=== PATIENT | female | born 1965 | race Caucasian/White ===

== ENCOUNTER → 2021-02-06 07:14 | Outpatient (CLI) | payer BC, SELFPAY ==
--- NOTE | 2021-02-06 07:25 | BI_ITS ---
MAMMOGRAPHY - BILATERAL SCREENING 3-D TOMOSYNTHESIS REASON FOR EXAM: Female, 55 years old. Annual screening mammogram. PERTINENT HISTORY: Grandmother at age 70. Paternal aunt at age 70. History of left needle and excisional biopsies in 2008. TECHNIQUE: 2-D mammograms and 3-D Tomosynthesis of the breast (s) were performed. CAD was performed. COMPARISON: None. FINDINGS: The breast composition is composed of scattered fibroglandular density. Clips in the upper outer quadrant of the left breast and left axilla. Scattered benign calcifications are seen. No dense spiculated masses or suspicious microcalcifications are identified. No architectural distortion is identified. There is no skin thickening or retraction. BI/SCRN MAMM (CAD)W/BEN BILAT IMPRESSION: No mammographic signs of malignancy. Routine yearly mammograms recommended. ASSESSMENT CATEGORY: BIRADS Category 2: Benign. A letter regarding these results will be sent to the patient by the facility within 30 days. FOLLOW UP RECOMMENDATION: Yearly follow up mammogram recommended. (A) Approximately 10% of breast cancers are not detected by mammography. A normal mammogram should not delay biopsy of a clinically suspicious abnormality. Electronically Signed: Hasmukh Gaines MD at 11:59 EDT , Service support ,
== END ==
PROVIDERS: PCP Family Medicine; Referring Provider Obstetrics & Gynecology Gynecology; Visit Provider Obstetrics & Gynecology Gynecology
DX: Z12.31 Encounter for screening mammogram for malignant neoplasm of breast (principal)
CPT/HCPCS: 77063; 77067

== ENCOUNTER → 2022-01-30 | Outpatient (CLI) | payer BC, SELFPAY ==
[2022-01-30 07:39] LABS: ALB/GLOB Ratio 1.1 RATIO (0.9-2.4); AST(SGOT) 17 U/L (15-37); Alanine Aminotransfer ALT/SGPT 24 U/L (13-56); Albumin, Serum 3.7 g/dL (3.2-5.0); Alkaline Phosphatase 52 U/L (45-117); Anion Gap 3 (5-15); BUN 12 mg/dL (7-18); BUN/Creat Ratio 16.9 RATIO (10-20); Calcium,Total 8.7 mg/dL (8.5-10.1); Chloride 107 mmol/L (98-107); Cholesterol 218 mg/dL (200); Creatinine, Serum 0.71 mg/dL (0.55-1.02); EST Glomerular Filtration Rate 90 mL/min (>60); Est Glom Filt Rate - Afr Amer 109 mL/min (>60); Globulin 3.5 g/dL (2.2-4.2); Glucose 95 mg/dL (74-106); High Density Lipoprotein 51 mg/dL; Potassium 3.9 mmol/L (3.5-5.1); Protein, Total 7.2 g/dL (6.4-8.2); Sodium Level 139 mmol/L (136-145); Triglycerides 85 mg/dL; Very Low Density Lipoprotein 17 mg/dL (5-40)
[2022-01-30 07:49] LABS: Vitamin D,25 Hydroxy 42.8 ng/mL
== END | disposition home or self-care (01) ==
LOC: LAB 06:58
PROVIDERS: PCP Nurse Practitioner Family; Referring Provider Nurse Practitioner Family; Visit Provider Nurse Practitioner Family
DX: Z00.00 Encounter for general adult medical examination without abnormal findings (principal); Z12.31 Encounter for screening mammogram for malignant neoplasm of breast; E55.9 Vitamin D deficiency, unspecified; Z13.1 Encounter for screening for diabetes mellitus; Z90.710 Acquired absence of both cervix and uterus
CPT/HCPCS: 36415; 80053; 80061; 82306

== ENCOUNTER → 2022-06-11 | Outpatient (CLI) | payer BC, SELFPAY ==
--- NOTE | 2022-06-11 13:52 | BI_ITS ---
MAMMOGRAPHY - BILATERAL SCREENING REASON FOR EXAM: Female, 57 years old. Routine annual screening examination. PERTINENT HISTORY: Grandmother with breast cancer. Aunt with breast cancer. Prior left excisional breast biopsy. TECHNIQUE: Digital bilateral breast ben (3D mammographic acquisition) in the CC and MLO projections. 2-D mediolateral oblique (MLO) and craniocaudad (CC) views of both breasts were obtained. CAD: Full Field Digital Mammography with Computer Added Detection was performed. COMPARISON: Comparison is made with prior study dated 02/06/2021. FINDINGS: Breast Composition: There are scattered areas of fibroglandular density. There are no dominant masses or suspicious calcifications. The patient is status post excisional breast biopsy in the upper lateral aspect of the left breast with resultant postoperative scarring. Surgical clips are once again seen in the left axilla. No other significant abnormalities are identified. There has been no significant change since the prior study. BI/SCRN MAMM (CAD)W/BEN BILAT IMPRESSION: Stable bilateral screening mammogram. Yearly follow-up mammogram recommended. (A) ASSESSMENT CATEGORY: BIRADS Category 2: Benign. A letter regarding these results will be sent to the patient by the facility within 30 days. Approximately 10% of breast cancers are not detected by mammography. A normal mammogram should not delay biopsy of a clinically suspicious abnormality. [id number] Electronically Signed: Alfredo Mayer MD at 15:06 EDT ,
== END | disposition home or self-care (01) ==
PROVIDERS: PCP Nurse Practitioner Family; Referring Provider Nurse Practitioner Family; Visit Provider Nurse Practitioner Family
DX: Z12.31 Encounter for screening mammogram for malignant neoplasm of breast (principal)
CPT/HCPCS: 77063; 77067

== ENCOUNTER → 2022-09-04 | Outpatient (CLI) | payer BC, SELFPAY ==
[2022-09-04 12:05] LABS: Hematocrit 39.3 % (37-47); Hemoglobin 13.1 g/dL (12.0-15.0); Mean Corp Hgb Conc 33.3 g/dL (32-36); Mean Corpuscular Hgb 31.3 pg (27.0-32.0); Mean Platelet Vol. 9.8 fl (6.2-12.0); Platelet Count 254 K/mm3 (150-450); RBC Distribution Width SD 41.4 fl (35.1-43.9); Red Blood Count 4.18 M/mm3 (4.2-5.4); White Blood Count 4.5 K/mm3 (4.4-11.0)
[2022-09-04 12:16] LABS: ALB/GLOB Ratio 1.1 RATIO (0.9-2.4); AST(SGOT) 26 U/L (15-37); Alanine Aminotransfer ALT/SGPT 34 U/L (13-56); Alkaline Phosphatase 56 U/L (45-117); Amylase 50 U/L (25-115); Anion Gap 6 (5-15); BUN 9 mg/dL (7-18); BUN/Creat Ratio 11.5 RATIO (10-20); Chloride 105 mmol/L (98-107); Creatinine, Serum 0.78 mg/dL (0.55-1.02); EST Glomerular Filtration Rate 80 mL/min (>60); Est Glom Filt Rate - Afr Amer 97 mL/min (>60); Globulin 3.6 g/dL (2.2-4.2); Glucose 123 mg/dL (74-106); Lipase 73 U/L (73-393); Potassium 3.9 mmol/L (3.5-5.1); Protein, Total 7.6 g/dL (6.4-8.2); Sodium Level 139 mmol/L (136-145)
== END | disposition home or self-care (01) ==
PROVIDERS: PCP Nurse Practitioner Family; Referring Provider Nurse Practitioner Family; Visit Provider Nurse Practitioner Family
DX: R10.9 Unspecified abdominal pain (principal); R19.7 Diarrhea, unspecified; R11.2 Nausea with vomiting, unspecified
CPT/HCPCS: 36415; 80053; 82150; 83690; 85027

== ENCOUNTER → 2022-11-26 | Outpatient (CLI) | payer BC, SELFPAY ==
--- NOTE | 2022-11-26 08:38 | STRESSREP ---
Stress Test Report Date: 11/26/2022 Procedure: Exercise tolerance test/imaging study Indications: Abnormal ECG Consent: Per the patient Procedure: The patient exercised on a Usama protocol for 9 minutes achieving a peak heart rate of 166 bpm (102% predicted maximal heart rate) with a peak blood pressure 174/68 mmHg and a peak MET capacity of 10.1 METs. The baseline ECG demonstrated normal sinus rhythm. Nonspecific ST changes in inferior leads. The peak exercise ECG demonstrated exaggeration of baseline changes. Nondiagnostic secondary to baseline abnormalities. There were no cardiac dysrhythmias pretest, during exercise, or recovery. The functional capacity was considered good. There was no complaint of chest discomfort during exercise or recovery. The examination was discontinued secondary to target heart rate being achieved. The patient was injected with 11.8 mCi of technetium 99m Cardiolite and subsequently rest SPECT Cardiolite nuclear imaging was obtained in the horizontal long, vertical long, and short axis views. Post-exercise, the patient was injected with 33.6 mCi of technetium 99m Cardiolite and subsequently stress SPECT Cardiolite nuclear imaging was obtained in the horizontal long, vertical long, and short axis views. A gated Cardiolite study at peak stress was obtained. Rest and stress SPECT Cardiolite nuclear imaging status post realignment, normalization, and attenuation correction, demonstrates the appearance of relative uniform tracer uptake and myocardial perfusion appearing within normal limits. There is end systolic thickening and brightening. The gated Cardiolite study demonstrates myocardial thickening and inward wall motion. The reported LVEF is 74%. Impression: 1. Technically adequate (percent predicted maximal heart rate greater than 85%) exercise tolerance test 2. Peak exercise ECG with nondiagnostic changes secondary to baseline abnormality 3. There were no cardiac dysrhythmias pretest, during exercise, or recovery 4. Rest and stress SPECT Cardiolite nuclear imaging demonstrate no fixed or reversible perfusion defect. 5. The gated Cardiolite study reports an LVEF of 74%. This note was generated with [employer] software. It may contain incorrect words, spelling, and punctuation that were not noted in checking the note before signing.
== END | disposition home or self-care (01) ==
PROVIDERS: PCP Nurse Practitioner Family; Referring Provider Physician Assistant Medical; Visit Provider Physician Assistant Medical
DX: Z01.810 Encounter for preprocedural cardiovascular examination (principal); R94.31 Abnormal electrocardiogram [ECG] [EKG]
CPT/HCPCS: 78452; 93017; A9500; A4216

== ENCOUNTER 2022-12-15 05:59 | Day surgery (SDC) | payer BC, SELFPAY ==
[2022-11-18 10:45] VITALS: BP 150/86; PULSE 112; RESP 17; TEMP 36.8; O2SAT 97; BMI 24.2
[2022-11-18] MEDS: Lactated Ringers 1,000 ML 15 ML IV (10:53)
--- NOTE | 2022-11-18 11:15 | HP.PCM_ITS ---
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 Jarad Molina MD) Environmental allergies H/O pyloric stenosis RUQ pain Surgical History?(Updated 11/04/22 @ 15:10 by Ilsa Vale) S/P endometrial ablation S/P hysterectomy S/P surgical removal of pilonidal cyst S/P tubal ligation Status post left breast lumpectomy Social History?(Updated 11/04/22 @ 15:11 by Ilsa Vale) Smoking Status:? Never smoker alcohol intake:? current HPI HPI HPI: Patient is a 57-year-old female here with intermittent nausea and vomiting as well as right upper quadrant pain especially after eating fatty foods.? She denies fevers or chills. ROS General General: No weight change, appetite, fatigue, colon cancer, breast cancer or weakness HEENT HEENT: No difficulty swallowing, eye injury, eye surgery, swollen glands or hoarseness Endo Endocrine: No thyroid disease, diabetes mellitus, thyroid cancer, Hair loss, heat intolerance or cold intolerance Skin Skin: No rash or changing moles Breast Breast: No left breast lump, right breast lump, nipple discharge, breast pain, abnormal mammogram, abnormal US or breast enlargement Musc Musculoskeletal: Yes arthritis; No back problems, rheumatoid arthritis, gout or joint pain Cardio Cardiovascular: No murmur, pacemaker, heart disease, atrial fibrillation, high blood pressure, heart attack, heart stent, palpitations, shortness of breat with exertion or chest pain Psych Psychiatric: No depression, anxiety or hearing voices Resp Respiratory: No shortness of breath, No sleep apnea, No cough, No COPD, No asthma, No emphysema and No wheezing Gastro Gastrointestinal: Yes abdominal pain, Yes nausea or vomiting, No diarrhea, No constipation, No blood in stool, No acid reflux, No hemorrhoids, No ulcers, Yes gallbladder problem and No black,tarry stools Marty Hematologic: No blood thinners, No blood disorders, No bleeding, No anemia and No blood clots Neuro Neurologic: No system reviewed and no additional complaints, except as documented, No as per HPI, No abnormal gait, No abnormal hearing, No abnormal movements, No abnormal speech, No behavioral changes, No burning sensations, No confusion, No convulsions, No disequilibrium, No dizziness, No localized weakness, No frequent falls, No headache(s), No lack of coordination, No loss of vision, No memory loss, No numbness, No other visual disturbances, No radicular pain, No restless legs, No sensory deficit, No syncope, No tingling, No tremor(s), No weakness and No other Exam Const General: cooperative Orientation: alert and oriented x3 HENMT Head: normal to inspection Neck Neck: normal visual inspection and full ROM Chest Chest palpation & inspection: normal inspection of the chest Resp Effort & Inspection: normal respiratory effort Auscultation: clear to auscultation bilaterally Cardio Rate: regular rate Rhythm: regular rhythm GI Inspection: non-distended Palpation: soft and nontender Skin General: no rashes or lesions noted Neuro General: patient alert and patient oriented x3 Extrem General: full ROM Psych Appearance: grossly normal Mental Status: mental status grossly normal Assessment and Plan Assessment and Plan (1) RUQ pain: ?Status:?Acute (2) Cholelithiasis: ?Status:?Acute ?Qualifiers: ?Cholelithiasis location:?gallbladder??Cholecystitis presence:?without cholecystitis??Biliary obstruction:?without biliary obstruction? Qualified Code(s):?K80.20 - Calculus of gallbladder without cholecystitis without obstruction Plan Patient does have biliary colic symptoms and ultrasound revealed cholelithiasis.? I recommended laparoscopic cholecystectomy.? I discussed the procedure in detail with the patient.? I discussed the risks, benefits, and alternatives of the procedure.? I discussed the risks including but not limited to bleeding, infection, injury to surrounding organs such as the liver, bile duct, bowels.? I did discuss the possibility of having to convert to an open procedure as well as the possibility that if any injuries occurred this may necessitate further surgery at a tertiary care center. Jarad Molina MD Pager: [facility] [address] [place] [address], [address] [place] [address] Office: I have examined the patient and the H&P has been reviewed. There are no clinical changes since date of exam.
[2022-11-18 12:03] LABS: Troponin-I HS 5 pg/mL (3.0-54.0)
--- NOTE | 2022-11-18 12:28 | SUR.PREOP ---
Updated patient that Troponin is within normal limits. Per Dr. Molina, patient may d/c home and his office will call her regarding cardiology follow up
[2022-12-15] VITALS (10 sets, daily range): BP systolic 100–137; BP diastolic 53–88; PULSE 54–96; RESP 16; TEMP 36.1–36.7; O2SAT 95–100; BMI 23.7
[2022-12-15] MEDS: Lactated Ringers 1,000 ML 15 ML IV (06:45)
--- NOTE | 2022-12-15 07:10 | HP.PCM_ITS ---
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 Jarad Molina MD) Environmental allergies H/O pyloric stenosis RUQ pain Surgical History?(Updated 11/04/22 @ 15:10 by Ilsa Vale) S/P endometrial ablation S/P hysterectomy S/P surgical removal of pilonidal cyst S/P tubal ligation Status post left breast lumpectomy Social History?(Updated 11/04/22 @ 15:11 by Ilsa Vale) Smoking Status:? Never smoker alcohol intake:? current HPI HPI HPI: Patient is a 57-year-old female here with intermittent nausea and vomiting as well as right upper quadrant pain especially after eating fatty foods.? She denies fevers or chills. ROS General General: No weight change, appetite, fatigue, colon cancer, breast cancer or weakness HEENT HEENT: No difficulty swallowing, eye injury, eye surgery, swollen glands or hoarseness Endo Endocrine: No thyroid disease, diabetes mellitus, thyroid cancer, Hair loss, heat intolerance or cold intolerance Skin Skin: No rash or changing moles Breast Breast: No left breast lump, right breast lump, nipple discharge, breast pain, abnormal mammogram, abnormal US or breast enlargement Musc Musculoskeletal: Yes arthritis; No back problems, rheumatoid arthritis, gout or joint pain Cardio Cardiovascular: No murmur, pacemaker, heart disease, atrial fibrillation, high blood pressure, heart attack, heart stent, palpitations, shortness of breat with exertion or chest pain Psych Psychiatric: No depression, anxiety or hearing voices Resp Respiratory: No shortness of breath, No sleep apnea, No cough, No COPD, No asthma, No emphysema and No wheezing Gastro Gastrointestinal: Yes abdominal pain, Yes nausea or vomiting, No diarrhea, No constipation, No blood in stool, No acid reflux, No hemorrhoids, No ulcers, Yes gallbladder problem and No black,tarry stools Marty Hematologic: No blood thinners, No blood disorders, No bleeding, No anemia and No blood clots Neuro Neurologic: No system reviewed and no additional complaints, except as documented, No as per HPI, No abnormal gait, No abnormal hearing, No abnormal movements, No abnormal speech, No behavioral changes, No burning sensations, No confusion, No convulsions, No disequilibrium, No dizziness, No localized weakness, No frequent falls, No headache(s), No lack of coordination, No loss of vision, No memory loss, No numbness, No other visual disturbances, No radicular pain, No restless legs, No sensory deficit, No syncope, No tingling, No tremor(s), No weakness and No other Exam Const General: cooperative Orientation: alert and oriented x3 HENMT Head: normal to inspection Neck Neck: normal visual inspection and full ROM Chest Chest palpation & inspection: normal inspection of the chest Resp Effort & Inspection: normal respiratory effort Auscultation: clear to auscultation bilaterally Cardio Rate: regular rate Rhythm: regular rhythm GI Inspection: non-distended Palpation: soft and nontender Skin General: no rashes or lesions noted Neuro General: patient alert and patient oriented x3 Extrem General: full ROM Psych Appearance: grossly normal Mental Status: mental status grossly normal Assessment and Plan Assessment and Plan (1) RUQ pain: ?Status:?Acute (2) Cholelithiasis: ?Status:?Acute ?Qualifiers: ?Cholelithiasis location:?gallbladder??Cholecystitis presence:?without cholecystitis??Biliary obstruction:?without biliary obstruction? Qualified Code(s):?K80.20 - Calculus of gallbladder without cholecystitis without obstruction Plan Patient does have biliary colic symptoms and ultrasound revealed cholelithiasis.? I recommended laparoscopic cholecystectomy.? I discussed the procedure in detail with the patient.? I discussed the risks, benefits, and alternatives of the procedure.? I discussed the risks including but not limited to bleeding, infection, injury to surrounding organs such as the liver, bile duct, bowels.? I did discuss the possibility of having to convert to an open procedure as well as the possibility that if any injuries occurred this may necessitate further surgery at a tertiary care center. Jarad Molina MD Pager: [facility] [address] [place] [address], [address] [place] [phone] Office: Patient had abnormal EKG during her last surgery attempt and surgery was canceled and she went for heart work-up. She has stress test which was normal. She is back today for laparoscopic cholecystectomy. There are no changes since the last exam. Jarad Molina MD Pager: [facility] [address] [place] [address], [address] [place] [phone] Office:
[2022-12-15] MEDS: Cefotetan 2 GM in 0.9% NS 100 ML IV (07:29)
--- NOTE | 2022-12-15 07:30 | GALL_PTH ---
PATIENT: TREVIN BECK JANUARY [place] [facility] [id number] AGE/SX: 57/F ROOM: RE12/15/[address]: Dr. Jarad Molina MD : 1965 BED: DIS: 12/15/2022 SPEC #: [id number] RECD: 12/15/22 10:00 STATUS: ASHER RICHARD #: [id number] SAMEER: 12/15/22 07:[address]: Jarad Molina DEPT: SURGICAL PATHOLOGY RECD BY: Emerita Britt ENTERED: 12/15/22 10:32 SP TYPE: LOIDA BISWAS DR: Danial Pinto, SNELLER HAND-C Tissues: Gallbladder, NOS Procedures: Surgery Specimen Level III HEADER OPERATION: Laparoscopic cholecystectomy with IOC PRE-OP DIAGNOSIS: Right upper quadrant pain, cholelithiasis TISSUE SUBMITTED: Gallbladder MICROSCOPIC DIAGNOSIS Gallbladder, cholecystectomy: Chronic cholecystitis and cholelithiasis. SJ:eric 12/16/2022 MICROSCOPIC DESCRIPTION Slides are reviewed. GROSS DESCRIPTION Received is one container labeled with the patient's name and designated gallbladder. The specimen consists of a gallbladder measuring 8.0 x 3.5 x 2.5 cm. The external surface is smooth and glistening. Focally, it is granular, hemorrhagic and contains cautery artifact. The lumen of the gallbladder contains greenish mucoid bile and multiple chalky yellow calculi ranging in size from <0.1 to 1.2 cm in greatest dimension. The mucosa is bile-stained and without any mass lesions. The gallbladder wall averages 0.1 cm in thickness and is free of mass lesions. Production Operations Inspector sections of the gallbladder and the cystic duct at margin of resection are submitted in one cassette. / AM:eric 12/15/2022 TC:3 CPT: 36513
--- NOTE | 2022-12-15 07:45 | RAD_ITS ---
STUDY: INTRAOPERATIVE CHOLANGIOGRAM. REASON FOR EXAM: Female, 57 years old. Laparoscopic cholecystectomy. FLUOROSCOPY TIME (if supplied): ( 13.3 seconds ) minutes/seconds. 3.06 mGy TECHNIQUE: An intraoperative cholangiogram was performed by the surgeon. Imaging was submitted. COMPARISON: None. FINDINGS: The intra and extra hepatic biliary ducts are unremarkable. No intraluminal filling defect is seen. There is free flow of contrast into the duodenum. RAD/Cholangiogram/ O R,Initial IMPRESSION: Unremarkable intraoperative cholangiogram. Electronically Signed: Alfredo Mayer MD at 15:31 EDT ,
[2022-12-15] MEDS: Bupivacaine 0.25% 30 ML Vial (08:13)
--- NOTE | 2022-12-15 08:50 | OP.PCM_ITS ---
Report of Operation Date of Procedure: 12/15/22 Pre-Operative Diagnosis: Biliary colic, cholelithiasis Post-Operative Diagnosis: Same Surgery/Procedure Performed:: Laparoscopic cholecystectomy with cholangiogram Specimen's removed: Gallbladder Description of Procedure: After obtaining informed consent patient was brought back to the operating room. General anesthesia was induced. The abdomen was prepped and draped in usual sterile fashion. An incision was made in the right upper quadrant and using Visiport technique the abdomen was entered. Under direct visualization an incision in the midline was made and a port was placed superior to the scar tissue. Next under direct visualization two 5-mm ports were placed one subxiphoid and 2 subcostal. Next the gallbladder was elevated and retracted toward the right shoulder. The peritoneum was stripped from the gallbladder. The infundibulum was located and retracted laterally. Next the triangle of Calot was dissected and the cystic duct and cystic artery were identified. Cholangiograms were performed. The Aviles clamp was used to clamp across the infundibulum and the catheter needle was inserted into the gallbladder. Under fluoroscopy contrast was instilled into the gallbladder and the common duct, cystic duct as well as proximal hepatic ducts were identified. There was good filling of the duodenum. There were no filling defects noted in the common bile duct. The clamp was removed as well as the needle and the infundibulum was grasped once more. Three hemolock clips were placed across the cystic duct. The cystic duct was then divided leaving 2 clips on the stump. The cystic artery was clipped and divided in the same fashion. The hook cautery was then used to take the gallbladder off of the gallbladder bed. Hemostasis was obtained. Gallbladder fossa was irrigated and no active bleeding or bile leakage was noted. Next the camera was introduced in the subxiphoid port. An Endopouch bag was placed through the umbilical port and the gallbladder was placed into it. The gallbladder was then removed through the umbilical incision. The camera was then reinserted through the umbilical port. The gallbladder fossa was inspected once more and noted to be hemostatic with no leaking bile. The abdomen was suctioned dry. The 5 mm ports were removed under direct visualization. The umbilical port was then removed and the air was removed from the abdomen. Next using an 0 Vicryl suture the umbilical fascia was closed in a [id number]-icybt fashion. The umbilical port site was irrigated local anesthetic was administered to all the incisions. All the incisions were closed with interrupted subcuticular 4-0 Monocryl sutures followed by Steri- Strips and dressings. The patient was awoken and taken to PACU in stable condition. Admit VTE Documentation VTE Mechan Device Prophylaxis: SCD's
--- NOTE | 2022-12-15 08:53 | DCINST_ITS ---
Discharge Instructions Procedure Gallbladder Diet Discharge Diet: Light diet - advance as tolerated Activity Discharge Activity: May Not Drive (for 2-3 days or while taking narcotic pain medications.) and - (Do not drive, work heavy equipment or sign legal documents for 24 hours.) May shower in (days): 1 Lifting Restrictions: 20 lbs for 2 weeks Additional Activity Instructions:: Pain medication may cause nausea. You should typically eat light foods as you take your pain medications. Pain medication may also cause constipation. If this is a problem for you, please discuss with your doctor. Dressing / Incision Call your doctor if your incision/area has: Continuous Slow Oozing, Sudden Increased Bleeding, Increased Pain/ Swelling, Increased Redness and Foul Smelling Discharge Call your doctor if you observe: Fever of 101 or Higher Suture Line Care: Avoid Pulling/Pushing and Avoid Pinching/Bending Remove Dressing in: 2 days Additional Dressing/Incision Instructions:: Leave operative bandaids on for 2 days. When you remove dressing, leave Steri-Strips on until your follow-up appointment, or until the Steri-Strips fall off on their own. Follow Up Care Please Follow Up With: Jarad Molina MD When: Please call to schedule 2 week follow up appointment. [phone] Test Results: Test results from this visit will be discussed in further detail at your follow- up appointment, if applicable. Discharge Plan Admission Attending Provider: Jarad Molina Primary Care Provider: Danial Pinto NP Discharge Orders/Prescriptions Prescriptions: New oxycodone 5 mg tablet 5 - 10 mg PO Q6H PRN (Reason: pain) 5 Days Qty: 20 0RF No Action zinc gluconate 50 mg tablet 50 mg PO DAILY Zyrtec 10 mg capsule 10 mg PO DAILY estradiol [Estradiol Transdermal Patch] 0.05 mg/24 hr Patch Weekly 1 patch TRANSDERMAL QWEEK Referrals / Follow Up: Danial Pinto NP, PRODUCT MARKETING INTERN-C [Primary Care Provider] - Disposition Disposition (needs filled in before D/C Order can be placed): Home, Self Care
== END 2022-12-15 12:47 | disposition home or self-care (01) ==
LOC: SDC 06:01 → AC 06:01
PROVIDERS: Anesthesiology; PCP Nurse Practitioner Family; Referring Provider Surgery; Visit Provider Surgery
PROC: (CPT 47610; principal; 2022-12-15 07:10)
DX: K80.10 Calculus of gallbladder with chronic cholecystitis without obstruction (principal); Z91.09 Other allergy status, other than to drugs and biological substances; Z87.19 Personal history of other diseases of the digestive system; Z97.3 Presence of spectacles and contact lenses; Z97.2 Presence of dental prosthetic device (complete) (partial); Z90.710 Acquired absence of both cervix and uterus; Z98.51 Tubal ligation status
CPT/HCPCS: 47563; 00790; 74300; 76000; 84484; 88304; 93005; J7120; J2405

== ENCOUNTER → 2023-06-17 | Outpatient (CLI) | payer BC, SELFPAY ==
--- NOTE | 2023-06-17 07:34 | BI_ITS ---
MAMMOGRAPHY - BILATERAL SCREENING REASON FOR EXAM: Female, 58 years old. Routine annual screening examination. PERTINENT HISTORY: Grandmother with breast cancer. Aunt with breast cancer. Remote left excisional breast biopsy. TECHNIQUE: Digital bilateral breast ben (3D mammographic acquisition) in the CC and MLO projections. 2-D mediolateral oblique (MLO) and craniocaudad (CC) views of both breasts were obtained. CAD: Full Field Digital Mammography with Computer Added Detection was performed. COMPARISON: Comparison is made with prior study June 11, 2022 and February 06, 2021. FINDINGS: Breast Composition: There are scattered areas of fibroglandular density. There are no dominant masses or suspicious calcifications. The patient is status post excisional breast biopsy in the upper lateral aspect of the left breast. Postoperative scarring is seen as well as postoperative clip. Surgical clips are also seen in the left axilla. No other significant abnormalities are identified. There has been no significant change since the prior study. BI/SCRN MAMM (CAD)W/BEN BILAT IMPRESSION: Stable bilateral screening mammogram. Yearly follow-up mammogram recommended. (A) ASSESSMENT CATEGORY: BIRADS Category 2: Benign. A letter regarding these results will be sent to the patient by the facility within 30 days. Approximately 10% of breast cancers are not detected by mammography. A normal mammogram should not delay biopsy of a clinically suspicious abnormality. [id number] Electronically Signed: Alfredo Mayer MD at 8:56 EDT ,
== END | disposition home or self-care (01) ==
LOC: OPBI 07:32
PROVIDERS: PCP Nurse Practitioner Family; Referring Provider Nurse Practitioner Family; Visit Provider Nurse Practitioner Family
DX: Z12.31 Encounter for screening mammogram for malignant neoplasm of breast (principal); Z80.3 Family history of malignant neoplasm of breast
CPT/HCPCS: 77063; 77067

== ENCOUNTER 2024-03-02 08:04 | Day surgery (SDC) | payer BC, SELFPAY ==
[2024-03-02] VITALS (9 sets, daily range): BP systolic 99–152; BP diastolic 56–89; PULSE 66–111; RESP 16; TEMP 36.3–36.4; O2SAT 100; BMI 23.6
--- NOTE | 2024-03-02 08:14 | PRE.ANES_ITS ---
ASA Classification* ASA Classification ASA Classification: 2 Assessment & Plan Anesthesia* Anesthesia Assessment Anesthesia Assessment: Discussed sedation and/or anesthesia options, risks, benefits, and alternatives with patient/parents/legal guardian/POA. Questions invited. The patient/parents/legal guardian/POA seems to understand and agrees to proceed with anesthesia plan. Reviewed the physical assessment, medical history, allergy history and patient home medications list prior to surgery/procedure/anesthetic and documented any changes. Performed airway and anesthesia risk assessments. Anesthesia Type Anesthesia Type: MAC (see written pre anesthesia record for complete assessment) Anesthesia Focused Assessment* Airway Assessment Mouth opens: >3 cm Mallampati Score: II Focused Labs Anesthesia Preop lab: CBC WBC 4.5 K/mm3 (4.4-11.0) 09/04/22 10:38 RBC 4.18 M/mm3 (4.2-5.4) L 09/04/22 10:38 Hgb 13.1 g/dL (12.0-15.0) 09/04/22 10:38 Hct 39.3 % (37-47) 09/04/22 10:38 Plt Count 254 K/mm3 (150-450) 09/04/22 10:38 CHEMISTRY Potassium 3.9 mmol/L (3.5-5.1) 09/04/22 10:38 Sodium 139 mmol/L (136-145) 09/04/22 10:38 BUN 9 mg/dL (7-18) 09/04/22 10:38 Creatinine 0.78 mg/dL (0.55-1.02) 09/04/22 10:38 Glucose 123 mg/dL (74-106) H 09/04/22 10:38 TSH 2.15 uIU/mL (0.358-3.74) 07/23/16 07:38 COAG Pre-Assessment Diagnosis/Proposed Procedure Planned Operative Procedure(s): COLONOSCOPY-OA Anesthesia History 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 When Was Last Pacemaker Check QUESTION #4 FULL TEXT: You/Your Family Experience fever (hyperthermia) with Anesthesia Last Oral Intake Last Oral intake: Last Oral Intake NPO since Meds taken in AM with sips of water? Meds patient instructed to take am of surgery PONV PONV - medical billing manager: PONV - medical billing manager Female Yes 02/29/24 12:02 HX of Motion Sickness No 02/29/24 12:02 HX of N/V After Surgery No 02/29/24 12:02 Non-Smoker Yes 02/29/24 12:02 Duration of Surgery greater No 02/29/24 12:02 than 60 minutes Number of Risk Factors 2 02/29/24 12:02 PONV Score Moderate Risk 02/29/24 12:02 Height & Weight Height & Weight: Anesthesia: Height & Weight Height 5 ft 4 in 01/14/24 09:00 Respiratory Assessment Respiratory Assessment - medical billing manager: Respiratory Tract Infection Hx - medical billing manager Hx Respiratory Tract Infection No 02/29/24 12:02 STOP Sleep Apnea STOP Sleep Apnea - medical billing manager: STOP Sleep Apnea - medical billing manager Hx Hypertension No 02/29/24 12:02 Hx Sleep Apnea No 02/29/24 12:02 CPAP BIPAP Do you snore loudly (louder No 02/29/24 12:02 than talking or can be heard Do you often feel tired/ No 02/29/24 12:02 fatigued/ sleepy during daytime? Has anyone observed you stop No 02/29/24 12:02 breathing during sleep? STOP Results Negative 02/29/24 12:02 QUESTION #5 FULL TEXT : Do you snore loudly (louder than talking or can be heard through closed doors)? 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 Specify any problems Hx of Preganancy in last 3 No 02/29/24 12:02 Months Nurse Filling Out Transfusion VCHRISTIN 02/29/24 12:02 & Questions: Date: 02/29/24 02/29/24 12:02 Time: 12:03 02/29/24 12:02 Patient unable to answer at this time (ie. confused, unrespo /Reproduction History /Reproductive History - medical billing manager: /Reproductive Hx- medical billing manager Hx Now No 02/29/24 12:02 Gestational Age (in weeks): EDC: Hx Hx Para Hx Section SAB No 02/29/24 12:02 Active Medications Active Medications: Current Medications Generic Name Dose Route Start Last Admin Trade Name Freq PRN Reason Stop Dose Admin Lactated Ringer's 1,000 mls @ 15 mls/hr 03/02/24 08:15 IV .Q48H LENA PFSH Medical History Hypercholesteremia History of stress test Cardiology follow-up encounter Encounter for preoperative assessment for noncoronary cardiac surgery Abnormal electrocardiogram [ECG] [EKG] Wears glasses Wears partial dentures Arthritis Back pain Non-smoker Hypertension Cholelithiasis H/O pyloric stenosis Environmental allergies RUQ pain Home Medications ?Medication ?Instructions ?Recorded ?Last Taken ?Type estradiol 0.05 mg/24 hr weekly 1 patch transdermal QWEEK 11/11/22 Unknown History transdermal patch ezetimibe 10 mg tablet 10 mg PO DAILY 01/14/24 Unknown History turmeric 400 mg capsule 400 mg PO .QD 01/14/24 02/27/24 History cetirizine 10 mg tablet (24Hour 10 mg PO DAILY PRN allergy symptoms 02/29/24 Unknown History Allergy) Allergy/AdvReac Type Severity Reaction Status Date / Time No Known Allergies Allergy Verified 02/29/24 11:56 Family History Father CAD (coronary artery disease), Onset Age: 80 bypass surgery Hypertension Grandmother Cancer Diabetes Other Heart disease Surgical History History of laparoscopic cholecystectomy Status post left breast lumpectomy S/P tubal ligation S/P endometrial ablation S/P hysterectomy S/P surgical removal of pilonidal cyst Social History household members: spouse current occupational status: employed Smoking Status: Never smoker alcohol intake: current substance use type: does not use Review of Systems (Anesthesia) ROS Narrative System reviewed and no additional complaints, except as documented.
[2024-03-02] MEDS: Lactated Ringers 1,000 ML 15 ML IV (08:30)
--- NOTE | 2024-03-02 08:47 | PCM.HP.STD ---
[facility] - General General Date of Admission: 03/02/24 Date of Service: 03/02/24 Chief Complaint: Screening colonoscopy HPI Narrative TREVIN BECK, is a 59 F who presents today for screening colonoscopy. She is never had a colonoscopy in the past. She has no chest pain or shortness of breath. She has no nausea, vomiting or diarrhea. She takes medicines for cholesterol on a daily basis. She also takes estrogen. She is in very good health. [facility] Medical History Hypercholesteremia History of stress test Cardiology follow-up encounter Encounter for preoperative assessment for noncoronary cardiac surgery Abnormal electrocardiogram [ECG] [EKG] Wears glasses Wears partial dentures Arthritis Back pain Non-smoker Hypertension Cholelithiasis H/O pyloric stenosis Environmental allergies RUQ pain Home Medications ?Medication ?Instructions ?Recorded ?Last Taken ?Type estradiol 0.05 mg/24 hr weekly 1 patch transdermal QWEEK 11/11/22 Unknown History transdermal patch ezetimibe 10 mg tablet 10 mg PO DAILY 01/14/24 Unknown History turmeric 400 mg capsule 400 mg PO .QD 01/14/24 02/27/24 History cetirizine 10 mg tablet (24Hour 10 mg PO DAILY PRN allergy symptoms 02/29/24 Unknown History Allergy) Allergy/AdvReac Type Severity Reaction Status Date / Time No Known Allergies Allergy Verified 03/02/24 08:22 Family History Father CAD (coronary artery disease), Onset Age: 80 bypass surgery Hypertension Grandmother Cancer Diabetes Other Heart disease Surgical History History of laparoscopic cholecystectomy Status post left breast lumpectomy S/P tubal ligation S/P endometrial ablation S/P hysterectomy S/P surgical removal of pilonidal cyst Social History household members: spouse current occupational status: employed Smoking Status: Never smoker alcohol intake: current substance use type: does not use ROS Review of Systems ROS Unobtainable: other Constitutional Constitutional: Denies fatigue, fever(s), poor appetite, weight gain or weight loss ENT HEENT: Denies mouth lesions Cardiovascular Cardiovascular: Denies abdominal bloating, abdominal edema or abdominal pain Respiratory/Chest Respiratory/Chest: Denies change in mental status, change in phlegm color, chest congestion or chest tightness Gastrointestinal Gastrointestinal: Denies belching, bloating, change in bowel habits, change in stool character, chewing difficulty, coffee ground emesis, constipation, cramping, diarrhea, dyspepsia, dysphagia, early satiety, excessive flatus, fecal incontinence, heartburn, hematemesis, hematochezia, hemorrhoids, loose stools, melena, nausea, odynophagia, rectal bleeding, tenesmus, vomiting or weight changes Genitourinary Genitourinary: Denies abdominal discomfort, burning urination or itching Musculoskeletal Musculoskeletal: Reports as per HPI; Denies muscle weakness or myalgias Integumentary Integumentary: Denies jaundice Neurologic Neurologic: Denies lack of coordination or weakness Psychiatric Psychiatric: Denies confusion, depression, memory loss, mood swings, paranoia or suicidal ideation Endocrine Endocrinology: Denies systems reviewed and no addt'l complaints, except as documented Hematologic/Lymphatic Hematologic/Lymphatic: Denies anemia, easy bleeding, easy bruising or lymphadenopathy Allergic/Immunologic Allergic/Immunologic: Denies systems reviewed and no addt'l complaints, except as documented Vital Signs Vital Signs Vital Signs: 03/02/24 08:23 03/02/24 08:23 Temperature 97.5 F L Temperature Source Temporal Pulse Rate 111 H Respiratory Rate 16 Respiratory Pattern Normal Blood Pressure 152/89 H Blood Pressure Mean 110 Blood Pressure Source Monitor Blood Pressure Position Semi-Fowlers Blood Pressure Location Right Arm Pulse Ox 100 Oxygen Delivery Method Room Air Weight Weight: 138 lb Body Mass Index (BMI) 23.6 Physical Exam Const alert General Appearance: cooperative Orientation / Consciousness: oriented to person HEENT hearing grossly normal bilaterally Head and Scalp: normal to inspection Face and Sinus: face symmetric Nose: external nose normal Mouth: oral and palatal mucosa normal Eyes conjunctivae normal General Eye: normal appearance of both eyes Neck full ROM General: normal visual inspection Lymph Lymphatic: no lymphadenopathy noted Chest inspection of chest normal and palpation of chest normal Chest: symmetrical chest wall rise Resp normal respiratory effort Effort and Inspection: able to speak in complete sentences Cardio regular rate GI non-distended Percussion: normal to percussion Rectal Exam: deferred Neuro Speech: speech normal Gait (Neuro): normal gait Assessment & Plan Assessment/Plan (1) Encounter for screening for malignant neoplasm of colon: PLAN: She was explained alternatives, risk, benefits including not withstanding bleeding, infection, sepsis, perforation, need for emergent urgent . She will have an ASA of 3.
--- NOTE | 2024-03-02 09:20 | OP.COLON_ITS ---
Patient Name: Cady Shah Procedure Date: 03/02/2024 8:50 AM Date of : 1965 Age: 59 Procedure: Colonoscopy Indications: Screening for colorectal malignant neoplasm Providers: Yovani Childress DO Referring MD: Danial Pinto Medicines: Monitored Anesthesia Care Patient Profile: This is a 59 year old female. Refer to note in patient chart for documentation of history and physical. Last Colonoscopy: none. The patient's first colonoscopy is today. Complications: No immediate complications. Procedure: Pre-Anesthesia Assessment: - Prior to the procedure, a History and Physical was performed, and patient medications and allergies were reviewed. The risks and benefits of the procedure and the sedation options and risks were discussed with the patient. All questions were answered and informed consent was obtained. Patient identification and proposed procedure were verified by the physician. Mental Status Examination: alert and oriented. Prophylactic Antibiotics: The patient does not require prophylactic antibiotics. Prior Anticoagulants: The patient has taken no anticoagulant or antiplatelet agents. ASA Grade Assessment: II - A patient with mild systemic disease. After reviewing the risks and benefits, the patient was deemed in satisfactory condition to undergo the procedure. The anesthesia plan was to use monitored anesthesia care (MAC). Immediately prior to administration of medications, the patient was re-assessed for adequacy to receive sedatives. The heart rate, respiratory rate, oxygen saturations, blood pressure, adequacy of pulmonary ventilation, and response to care were monitored throughout the procedure. The physical status of the patient was re-assessed after the procedure. After I obtained informed consent, the scope was passed under direct vision. Throughout the procedure, the patient's blood pressure, pulse, and oxygen saturations were monitored continuously. The Colonoscope was introduced through the anus and advanced to the cecum, identified by appendiceal orifice and ileocecal valve. The colonoscopy was performed without difficulty. The patient tolerated the procedure well. The quality of the bowel preparation was adequate. Scope In: 9:03:57 AM Scope Withdrawal Time 0 hours 7 minutes 1 second Scope Out: 9:14:46 AM Total Procedure Duration Time 0 hours 10 minutes 49 seconds Findings: The perianal and digital rectal examinations were normal. The entire examined colon appeared normal on direct and retroflexion views. Impression: - The entire examined colon is normal on direct and retroflexion views. - No specimens collected. Recommendation: - Discharge patient to home. - Resume previous diet. - Continue present medications. - Repeat colonoscopy in 10 years for screening purposes. Procedure Code(s): --- Professional --- G0121, Colorectal cancer screening; colonoscopy on individual not meeting criteria for high risk CPT copyright 2021 [employer]. All rights reserved. The codes documented in this report are preliminary and upon pleasure craft sailor review may be revised to meet current compliance requirements. Yovani Childress DO 03/02/2024 9:19:46 AM This report has been signed electronically. Number of Addenda: 0 Note Initiated On: 03/02/2024 8:50 AM
--- NOTE | 2024-03-02 09:20 | OP.CCLET_ITS ---
03/02/2024 Danial Pinto Re : Colonoscopy procedure for Cady Shah Dear Blair This procedure was performed on February. My impressions and recommendations are as follows: Impressions : - The entire examined colon is normal on direct and retroflexion views. - No specimens collected. Recommendations : - Discharge patient to home. - Resume previous diet. - Continue present medications. - Repeat colonoscopy in 10 years for screening purposes. My findings are described in the full procedure note, which is enclosed. If I can be of further assistance, please feel free to contact me at . Sincerely, Yovani Childress, 03/02/2024 9:19:46 AM This report has been signed electronically.
--- NOTE | 2024-03-02 09:22 | PCM.POST.ANE ---
Anesthesia: Postop Eval I Current Vital Signs Temperature: 97.4 F Pulse Rate: 78 Blood Pressure: 99/56 Respiratory Rate: 16 Pulse Ox: 100 Oxygen Delivery Method: Room Air Assessment Airway patent: Yes Spontaneous unlabored respirations: Yes Mental status: Asleep nausea: No Vomiting: No Anesthesia Complication: No Fluid Hydration Crystalloid volume administer (ml): 400 Total IV fluid infused: 400 Progress Note Anesthesia document: Postop Eval 1 completed: Yes
--- NOTE | 2024-03-02 10:34 | PCM.POSTANE2 ---
Anesthesia Postop Eval I Sum Postop Eval Completion status Anesthesia document: Postop Eval 1 completed: Yes Anesthesia Postop Eval I Summary Anesthesia Postop Eval I Summary: Anesthesia Postop Eval I: Assessment Summary Airway patent Yes 03/02/24 09:23 [email or web address] Spontaneous unlabored Yes 03/02/24 09:23 [email or web address] respirations Mental status Asleep 03/02/24 09:23 [email or web address] nausea No 03/02/24 09:23 [email or web address] Vomiting No 03/02/24 09:23 [email or web address] Anesthesia Postop Eval I: Fluid Summary Crystalloid volume administer 400 03/02/24 09:23 [email or web address] (ml) Colloids volume administered ( ml) Blood Product volume administered (ml) Total IV fluid infused 400 03/02/24 09:23 [email or web address] Anesthesia Postop Eval I: Summary Notes Anesthesia Complication No 03/02/24 09:23 [email or web address] Anesthesia Complication Comment: Post-operative progress note Anesthesia: Postop Eval II Evaluation Mental status: Awake Pain Level: 0 nausea: No Vomiting: No
== END 2024-03-02 10:12 | disposition home or self-care (01) ==
LOC: EN 08:06 → AC 08:07
PROVIDERS: PCP Nurse Practitioner Family; Referring Provider Nurse Practitioner Family; Visit Provider Internal Medicine Gastroenterology
PROC: 0DJD8ZZ Inspection of Lower Intestinal Tract, Via Natural or Artificial Opening Endoscopic (ICD-10-PCS; CPT 45378; principal; 2024-03-02 08:55)
DX: Z12.11 Encounter for screening for malignant neoplasm of colon (principal); I10 Essential (primary) hypertension; E78.00 Pure hypercholesterolemia, unspecified; Z79.899 Other long term (current) drug therapy; Z90.49 Acquired absence of other specified parts of digestive tract; Z98.51 Tubal ligation status; Z90.710 Acquired absence of both cervix and uterus
CPT/HCPCS: 45378; J7120; J2405

== ENCOUNTER → 2024-06-22 | Outpatient (CLI) | payer BC, SELFPAY | END | disposition home or self-care (01) | LOC: OPBI 07:41 | PROVIDERS: PCP Nurse Practitioner Family; Referring Provider Nurse Practitioner Family; Visit Provider Nurse Practitioner Family | DX: Z12.31 Encounter for screening mammogram for malignant neoplasm of breast (principal); Z80.3 Family history of malignant neoplasm of breast | CPT/HCPCS: 77063; 77067 ==

== ENCOUNTER 2024-10-16 17:00 | Outpatient (RCR) | payer BC, SELFPAY ==
--- NOTE | 2024-09-18 17:41 | HP.OTEVAL_ITS ---
Patient's Visit Information Visit Information Visit Information: TREVIN BECK is a 59 year old F, referred to Occupational Therapy by QUITA Rodriguez, with a diagnosis of left lower end radius fx.. Date of Evaluation: 09/18/24 Occupational Therapist: GREGORY Guevara/Contreras, CHT Subjective Subjective: This 59 year old female was seen for OT eval with dx of left lower end radius fx. pt states DOI was on 08/08/24 while on vacation in [place]. pt returned to [place] and was casted on 08/17/24. 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 pts spouse is assisting with daily tasks. Pain left wrist: Current Pain Intensity: 0 Pain Intensity Range: 3 ROM Forearm: right WNL Left supination 10* pronation 45* Wrist: right 65/70 left 35/20 Strength Parts Consultant: right 80# left NT Lateral Pinch: right 20# left NT Tripod Pinch: right 18# left NT Sensation Sensation Comments: left radial side of thumb distal to MP to tip- pt states this feels better or not as much Quick DASH-Disab of Arm,Shoulder& Hand Quick DASH Score: 51.6650 Goals Goal:: pt will demo a increase in left public improvement inspector strength to 35# or greater to return to her PLOF with ADLS by d/c pt will demo a left lateral and tripod pinch to 6# to increase pts IND with ADLs by d/c Goal:: pt will demo left forearm supination to 65* or greater to return to her PLOF by d.c pt will demo left forearm pronation to 75* or greater to return to her PLOF by d.c Goal:: pt will report no pain greater than 1/10 with use of left hand with ADLs and IADLs by d.c Goal:: Pt will demo understanding of joint protection and ergonomics when performing BADLs and IADLs by d/c Pt will demo understanding of adaptive Equipment use to decrease stress on joints to allow pt to perform BADSL and IADLS at HAYLEY level. Rehabilitation General Assessment: pt arrives 5 weeks and 3 days from DOI and cast removed 3 days ago pt placed in supportive left wrist brace. pt demo with limited forearm, wrist ROM, weakness and pain limiting use of left UE with ADLs and IADLs. pt would benefit from skilled OT services 1-2x week for 6 weeks to return pt to her PLOF. Today therapist ed. pt on slow light ROM ex to improve pts functional ROM- pt demo understanding and agrees to POC. Rehabilitation Potential: Good Anticipated Interventions Anticipated Interventions: A/AAROM/PROM, Strengthening, Triggerpoint Release, Orthoses, Joint Protection/Energy Conservation, Ergonomic Education, Education re assistive Equipment, Education re Diagnosis, Caregiver Training and Home Program Visit Plan Frequency: 1-2x /Week Duration: 6 Weeks General Plan: initiate AROM in 2 weeks light strengthening as long as pt has functional ROM TEXT: Thank you for the opportunity to evaluate your patient. For Medicare and Medicare HMO plans, please review the plan of care and approve it. It will need to be FAXED BACK to us at [phone] for Medicare purposes. Please let me know if there are questions or concerns regarding this plan of care. Physician Signature: Date:
--- NOTE | 2024-10-16 17:29 | HP.OTDCSUM_ITS ---
Discharge Summary D/C Summary: It has been my pleasure to treat TREVIN BECK under orders from QUITA Rodriguez, for the diagnosis of left lower end radius fx. for a total of 7 visit(s). Please see the following information for a summary of their discharge status. Overall Improvement % Improvement: 90 Objective Objective/Function: pt demo with left invisible braces orthodontist strength 35# left lateral pinch 16# left tripod pinch 10# left wrist ROM 45/35* pt demo good understanding of her HEP- pt to continue to use as tolerated Goals Patient Goals: Regain Mobility, Regain Strength, Decrease Pain, Use Hand/Wrist/Arm Normally Again and Resume Former Household Responsibilities (Cooking,Cleaning,Yard, etc.) Goal:: pt will demo a increase in left pressure vessel inspector strength to 35# or greater to return to her PLOF with ADLS by d/c pt will demo a left lateral and tripod pinch to 6# to increase pts IND with ADLs by d/c Goal:: pt will demo left forearm supination to 65* or greater to return to her PLOF by d.c pt will demo left forearm pronation to 75* or greater to return to her PLOF by d.c Goal:: pt will report no pain greater than 1/10 with use of left hand with ADLs and IADLs by d.c Goal:: Pt will demo understanding of joint protection and ergonomics when performing BADLs and IADLs by d/c Pt will demo understanding of adaptive Equipment use to decrease stress on joints to allow pt to perform BADSL and IADLS at HAYLEY level. Plan Plan: pt to work on light daily tasks will strengthen as pt kendall. D/C Information Discharge Comments: pt agrees to cont. her HEP. and agrees to D/C. d/c sentence: If there are questions or concerns regarding this patient's occupational therapy, please fell free to call me at [phone]. Thank you for the referr al of this patient. Sincerely, Margaux Alberto, OTR/L, CHT
== END 2024-10-16 19:00 | disposition home or self-care (01) ==
LOC: OT 17:00
PROVIDERS: PCP Nurse Practitioner Family; Referring Provider Physician Assistant Surgical; Visit Provider Physician Assistant Surgical
DX: S52.592D Other fractures of lower end of left radius, subsequent encounter for closed fracture with routine healing (principal)
CPT/HCPCS: 97110; 97140; 97166; 97530